=== PATIENT | female | born 1955 | race African-American/Black ===

== ENCOUNTER 2017-08-03 19:02 | Emergency (ER) | payer OTHER ==
[~2017-08-03] VITALS: Ht 167.6 cm; Wt 91.0 kg
[2017-08-03] MEDS ORDERED: ACETAMINOPHEN 500MG TABLET PO ONE (23:45)
[2017-08-04 02:50] VITALS: BP 142/68
== END 2017-08-04 03:49 | disposition home or self-care (01) ==
LOC: ER 19:02
DX: S09.8XXA Other specified injuries of head, initial encounter (principal); M54.5 Low back pain; M25.552 Pain in left hip; M79.605 Pain in left leg; I10 Essential (primary) hypertension; E11.9 Type 2 diabetes mellitus without complications; I25.2 Old myocardial infarction; Z86.73 Personal history of transient ischemic attack (TIA), and cerebral infarction without residual deficits; W01.0XXA Fall on same level from slipping, tripping and stumbling without subsequent striking against object, initial encounter; Y93.9 Activity, unspecified; Y92.9 Unspecified place or not applicable
CPT/HCPCS: 70450; 72100; 73502; 73590; 82962; 99284; Z7610